=== PATIENT | male | born 1955 | race Caucasian/White ===

== ENCOUNTER 2016-08-07 17:15 | Inpatient (IN) | payer OTHER ==
[~2016-08-07] VITALS: Ht 188 cm; Wt 94.8 kg
--- NOTE | ~2016-08-07 | H ---
[facility] [place] [address] HISTORY AND PHYSICAL Name: SAIDAHEIDI DEO Room #: 431-P ADM IN M.R.#: [id number] Admission: 08/07/16 Attend Phys: Naresh Reed MD Discharge: Date of : 51 Report #: [id number] THIS REPORT FOR: //name// CC: Naresh Reed DATE OF SERVICE: 08/07/2016 CHIEF COMPLAINT: Cough and weakness. HISTORY OF PRESENT ILLNESS: The patient is a 61-year-old male who has had a very complicated last 6-8 months with numerous admissions over at ___ [facility]. His underlying problem is paraplegia and diabetes mellitus. He has developed several wounds of his sacrum and lower extremities. He has also developed recurrent UTIs. He has also developed recurrent bowel obstruction. He has been living in a hotel and not been able to get out of bed due to poor bed. In light of that, he has been having significant problems with ____ himself. He does have a nurse that visits periodically, but he has not been able to get out of the bed. He has not been showering. He has not been taking his medications regularly. PAST MEDICAL HISTORY: Significant for: 1. Diabetes mellitus. 2. Recent recurrent partial small-bowel obstruction. 3. Peripheral arterial disease with episodes of ketoacidosis. 4. Chronic constipation. 5. Diastolic heart failure. 6. Peripheral artery disease. 7. Coronary artery disease. 8. Diabetic foot ulcers. 9. Gluteal ulcer. 10. Recent UTI. MEDICATIONS: Are as follows, takes Valium 5 mg q. 8 p.r.n., Lasix 40 mg b.i.d., insulin Glargine and lispro daily, metoprolol b.i.d., Bactroban to the sores, MiraLax daily, Lyrica 75 mg b.i.d. SOCIAL HISTORY: Again, he has been living in a hotel, he has had a son who visits periodically, but patient reports does not get ____ much care. He is a prior smoker and prior drinker, does not drink actively, no recreational drugs. REVIEW OF SYSTEMS: CONSTITUTIONAL: He is not aware of any fevers or chills. HEENT: He denies headaches or visual changes. CHEST: He does have a cough or sputum production. No chest pain, no palpitations. GASTROINTESTINAL: He has no vomiting or diarrhea or black stools. He does [facility] [address] [place] [address] HISTORY AND PHYSICAL Name: HEIDI CINTRON Room #: 431-P [facility] IN .R.#: [id number] Admission: 08/07/16 Attend Phys: Naresh Reed MD Discharge: Date of : 51 Report #: [id number] notice cloudy dark urine and dysuria. EXTREMITIES: He has marked swelling and weakness in his legs with ulcer on his sacrum and also on his right foot. PHYSICAL EXAMINATION: VITAL SIGNS: In my office today, blood pressure is 90/52. Pulse ox was 88%, pulse was 89, respiratory rate is 28, temperature is 98.1. His weight is 135 pounds, last time I saw him 14 months ago, he weighed 240 pounds. HEENT: His mucous membranes are dry. NECK: Supple without increased central venous pressure. CHEST: Shows coarse in the right anterior and posteriorly. CARDIOVASCULAR: He has a regular rhythm with no S4. ABDOMEN: Soft, not distended. Bowel sounds are present. EXTREMITIES: There is marked evidence of peripheral vascular disease with atrophy ____ and severely poorly maintained hygiene in his feet with thickened nails, dry skin and flaking throughout. There is a stage 2 ulcer in the right lateral malleolus. The pulses are very faint, but are present. His toes have a white purple hue on both feet. I could not review his sacral unclear as he is in a wheelchair and he is too weak to get up to get to the bed and we will review that once he gets to the hospital. ASSESSMENT AND PLAN: 1. Pneumonia, right lower lobe, ____ Rocephin, Zithromax, breathing treatments and get a CBC, chemistry panel. 2. Sacral decubitus ulcer. We will consult the wound clinic, Dr. Nicholas and the wound care nurse. 3. Diabetes mellitus, we will start on a sliding scale insulin. 4. History of recurrent small-bowel obstruction. Check KUB, diabetic diet for now. 5. History of UTI, get urine culture, the Rocephin should cover. We will followup on the sensitivities. 6. Severe debility, get PT and OT, likely residential placement. 7. Chronic constipation, continue MiraLax. 8. History of COPD, breathing treatments 5. History of spinal cord injury with weakness, ____ complete paraplegia, PT and OT. By: [id number] Naresh Reed MD /nt
[2016-08-07 20:00] VITALS: BP 92/52
[2016-08-07 20:19] LABS: ABSOLUTE NEUTROPHILS 6.6 thou/uL (1.4-8.2); BASOPHILS 1.1 % (0.0-2.0); EOSINOPHILS 2.1 % (0.0-3.0); HEMATOCRIT 39.1 % (42.0-52.0); HEMOGLOBIN 13.1 gm/dL (14.0-18.0); LYMPHOCYTES 25.7 % (24.0-44.0); MCH 26.5 pg (26.0-34.0); MCHC 33.4 g/dL (28.0-37.0); MCV 79.3 fL (80.0-100.0); MONOCYTES 6.4 % (1.0-8.0); PLATELET COUNT 232 thou/uL (150-400); POLYS 64.7 % (36.0-66.0); RBC 4.93 mil/uL (4.50-6.00); RDW 15.4 % (10.5-14.5); WBC 10.2 thou/uL (4.0-11.0)
[2016-08-07 20:20] LABS: MANUAL DIFF NO
[2016-08-07 20:31] LABS: ALBUMIN 3.1 g/dL (3.4-5.0); CALCIUM 8.9 mg/dL (8.5-10.1); POTASSIUM 3.9 mmol/L (3.5-5.1); TOTAL BILIRUBIN 0.5 mg/dL (<0.1-1.0); TOTAL PROTEIN 7.6 g/dL (6.4-8.2)
[2016-08-08 02:25] LABS: URINE BILIRUBIN NEGATIVE (Negative); URINE BLOOD 2+ (Negative); URINE COLOR YELLOW; URINE GLUCOSE-RANDOM* NEGATIVE (Negative); URINE KETONES NEGATIVE (Negative); URINE LEUKOCYTES-REFLEX 2+ (Negative); URINE PROTEIN (DIPSTICK) TRACE (Negative); URINE SPECIFIC GRAVITY 1.015 (1.003-1.035); URINE UROBILINOGEN 0.2 E.U./dl (0.2-1.0)
[2016-08-08 02:37] LABS: CASTS None Seen /LPF (None Seen); SQUAMOUS None Seen /LPF (0-3); URINE WBC-REFLEX >25 Many /HPF (0-5)
[2016-08-08 02:38] LABS: AMORPHOUS URATES Moderate /LPF (None Seen); CRYSTALS None Seen /LPF (None Seen)
[2016-08-08 08:35] VITALS: BP 120/62
[2016-08-08 14:12] LABS: HEMATOCRIT 36.5 % (42.0-52.0); HEMOGLOBIN 12.1 gm/dL (14.0-18.0); MCH 26.6 pg (26.0-34.0); MCHC 33.2 g/dL (28.0-37.0); RBC 4.56 mil/uL (4.50-6.00); RDW 15.2 % (10.5-14.5); WBC 7.9 thou/uL (4.0-11.0)
[2016-08-08 15:13] VITALS: BP 99/48
[2016-08-08 15:18] VITALS: BP 116/61
[2016-08-08 19:28] VITALS: BP 107/37
[2016-08-09 04:04] VITALS: BP 122/63
[2016-08-09 04:36] LABS: ALBUMIN 2.6 g/dL (3.4-5.0); CALCIUM 8.5 mg/dL (8.5-10.1); CREATININE 0.8 mg/dL (0.7-1.3); POTASSIUM 4.1 mmol/L (3.5-5.1); TOTAL BILIRUBIN 0.3 mg/dL (<0.1-1.0); TOTAL PROTEIN 6.7 g/dL (6.4-8.2)
[2016-08-09 07:40] VITALS: BP 119/72
[2016-08-09 15:43] VITALS: BP 156/73
[2016-08-09 21:00] VITALS: BP 126/60
[2016-08-10 04:30] VITALS: BP 138/68
[2016-08-10 07:19] VITALS: BP 133/75
[2016-08-10 16:09] VITALS: BP 115/61
[2016-08-10 19:53] VITALS: BP 127/64
[2016-08-11 04:20] VITALS: BP 116/63
[2016-08-11 09:02] VITALS: BP 94/63
[2016-08-11 15:55] VITALS: BP 123/54
[2016-08-11 20:00] VITALS: BP 129/68
[2016-08-12 04:22] VITALS: BP 118/69
[2016-08-12 07:35] VITALS: BP 110/56
[2016-08-12 08:08] VITALS: BP 110/56
[2016-08-12 11:35] VITALS: BP 129/52
[2016-08-12 15:24] VITALS: BP 124/57
[2016-08-12 20:52] VITALS: BP 139/73
[2016-08-13 04:19] VITALS: BP 127/76
[2016-08-13 07:41] VITALS: BP 140/70
[2016-08-13] MEDS ORDERED: ALBUTEROL2.5 MG/0.5 INH (10:38)
[2016-08-13] MEDS ORDERED: ENOXAPARIN40 MG/0.1 SUBQ (10:38)
[2016-08-13] MEDS ORDERED: DOXYCYCLINE 10100 MG PO (10:38)
[2016-08-13] MEDS ORDERED: LANTUS100 UNIT/M SUBQ (10:38)
[2016-08-13] MEDS ORDERED: VALIUM5 MG PO (10:38)
[2016-08-13] MEDS ORDERED: LYRICA 75 MG CA75 MG PO (10:38)
[2016-08-13] MEDS ORDERED: OXYCODONE HCL 55 MG PO (10:38)
[2016-08-13] MEDS ORDERED: HUMALOG100 UNIT/1 SUBQ (10:38)
[2016-08-13] MEDS ORDERED: ACETAMINOPHEN325 M1 PO (10:38)
[2016-08-13] MEDS ORDERED: PERCOCET 10-321 EACH PO (10:38)
[2016-08-13] MEDS ORDERED: NYSTATIN 1100000 U/M SW&SWALLOW (10:38)
== END 2016-08-13 15:59 | DRG 689 ==
LOC: 4E 17:15
PROVIDERS: Family Medicine
DX: N39.0 Urinary tract infection, site not specified (principal); E43 Unspecified severe protein-calorie malnutrition; J18.9 Pneumonia, unspecified organism; J44.0 Chronic obstructive pulmonary disease with (acute) lower respiratory infection; N17.9 Acute kidney failure, unspecified; J06.9 Acute upper respiratory infection, unspecified; L89.309 Pressure ulcer of unspecified buttock, unspecified stage; L89.899 Pressure ulcer of other site, unspecified stage; N18.9 Chronic kidney disease, unspecified; E11.22 Type 2 diabetes mellitus with diabetic chronic kidney disease; E11.40 Type 2 diabetes mellitus with diabetic neuropathy, unspecified; E11.21 Type 2 diabetes mellitus with diabetic nephropathy; G83.9 Paralytic syndrome, unspecified; B37.9 Candidiasis, unspecified; E11.51 Type 2 diabetes mellitus with diabetic peripheral angiopathy without gangrene; K59.00 Constipation, unspecified; I50.9 Heart failure, unspecified; I25.10 Atherosclerotic heart disease of native coronary artery without angina pectoris; L89.159 Pressure ulcer of sacral region, unspecified stage; Z91.041 Radiographic dye allergy status; Z91.048 Other nonmedicinal substance allergy status; Z79.4 Long term (current) use of insulin; Z68.26 Body mass index [BMI] 26.0-26.9, adult; Z87.440 Personal history of urinary (tract) infections
CPT/HCPCS: 10783

== ENCOUNTER 2016-10-01 19:15 | Inpatient (IN) | payer OTHER ==
[~2016-10-01] VITALS: Ht 185.4 cm; Wt 110.2 kg
--- NOTE | ~2016-10-01 | H ---
[facility] [place] [address] HISTORY AND PHYSICAL Name: SAIDAHEIDI DEO Room #: 428-P [facility] Brenda Borges#: [id number] Admission: 10/01/16 Attend Phys: Naresh Reed MD Discharge: Date of : 51 Report #: [id number] THIS REPORT FOR: //name// CC: Naresh Reed DATE OF SERVICE: 10/02/2016 CHIEF COMPLAINT: Weakness. HISTORY OF PRESENT ILLNESS: The patient is a 61-year-old male with multiple chronic problems including a complete paraplegia and chronic back pain. He has been in numerous hospitals over the past several years. He has recently been in a skilled facility at [facility]. He reports that they have been not taking care of him and even causing him increasing pain and he demanded to be sent out. The patient was seen in the ER and evaluated for this pain. He has a wound on his foot. He has diabetes. He denies any fevers or chills. PAST MEDICAL HISTORY: His past history is significant for: 1. Prior back injury with partial paraplegia and inability to walk for many years. 2. Prior bowel obstruction. 3. Diabetes mellitus type 2. 4. Several wounds on his legs and back. 5. COPD. 6. Chronic pain syndrome. 7. Anxiety. MEDICATIONS: Include Percocet p.r.n., oxycodone p.r.n., Tylenol p.r.n., Lyrica 75 mg t.i.d., Valium 5 mg t.i.d., Lantus b.i.d. and Humalog sliding scale. SOCIAL HISTORY: He is a nonsmoker currently. He smoked in the past. No alcohol. No recreational drugs at this time. ALLERGIES: IODINE. REVIEW OF SYSTEMS: CONSTITUTIONAL: No fever or chills. HEENT: No headaches or visual changes, other than his chronic pain. CHEST: No chest pains. He complains of some cough from the back of his throat. It has been there chronically for over a year. No sputum production. CARDIOVASCULAR: No chest pain or palpitations. GASTROINTESTINAL: No nausea, vomiting, diarrhea or constipation. GENITOURINARY: No burning. No frequency. EXTREMITIES: He has the wound and the leg pain and back pain. NEUROLOGIC: He has the weakness and paresthesias. [address] [address] HISTORY AND PHYSICAL Name: HEIDI CINTRON Room #: 428-P [facility] Brenda Borges#: [id number] Admission: 10/01/16 Attend Phys: Naresh Reed MD Discharge: Date of : 51 Report #: [id number] PHYSICAL EXAMINATION: VITAL SIGNS: Blood pressure 130/68, pulse is 80 and respiratory rate is 14. He is afebrile. GENERAL: The patient is awake and alert. He is in no acute distress. He is freely conversive. HEENT: His mucous membranes are moist. NECK: Supple, without adenopathy, thyromegaly or bruits. CHEST: Clear to auscultation anteriorly. CARDIOVASCULAR: Regular rate and rhythm, without murmur. ABDOMEN: Soft, nondistended, nontender. No masses. Bowel sounds are active. EXTREMITIES: There is edema bilaterally. Pulses are present. He has wounds on the right ankle. They does not appear red or infected. His pulses appear intact. LABORATORY DATA: Sodium 139, potassium 4.7, chloride 102, bicarbonate 33, BUN 26, creatinine 0.9, glucose 315 and calcium 9.5. WBC 6.4, hemoglobin 13.6, hematocrit 40.4, platelet count 180,000, segs 52 and lymphs 37. Venous Dopplers, no evidence of DVT. ASSESSMENT AND PLAN: Chronic pain. Unfortunately, the patient's facility at [facility] was not going to take him back due to his disruptive behavior and accusations of inadequate care. They requested that he not return. However, we are going to observe the patient and try to find out an alternate facility for him, maintain his regular meds. I do not see anything that would require full admission to the hospital or any new medical intervention at this time. By: [id number] Naresh Reed MD /nt
--- NOTE | ~2016-10-01 | HC ---
[facility] [place] [address] CONSULTATION Name: HEIDI CINTRON Room #: 428-[facility]#: [id number] Admission: 10/01/16 Attend Phys: Naresh Reed MD Discharge: Date of : 51 Report #: [id number] THIS REPORT FOR: //name// CC: Naresh Reed DATE OF SERVICE: 10/03/2016 PERSONAL PHYSICIAN: Naresh Reed MD CHIEF COMPLAINT: Multiple wounds. HISTORY OF PRESENT ILLNESS: This is a 61-year-old white male who has recently been in a rehab facility at [facility] for the past several weeks. The patient states that he was admitted for generalized weakness, but is concerned because he does not feel he is getting adequate care to the wounds that he has and I have been asked to assist in the care of the wounds at this time. The patient admits that he does have diabetes. The patient states he tries to eat a high protein diet but is not very successful at that. The patient denies any other associated complaints except for the chronic back pain. PAST MEDICAL HISTORY: Significant for partial paraplegia, inability to walk for several years secondary to injury, history of type 2 diabetes, recurrent pressure ulcers, COPD, chronic pain syndrome, and anxiety. CURRENT MEDICATIONS: Multiple, I reviewed the patient's medication list. DRUG ALLERGIES: IODINE. SOCIAL HISTORY: The patient resides in a care facility at this time. Does not smoke now, but is a former smoker. No alcohol. REVIEW OF SYSTEMS: CONSTITUTIONAL: The patient denies fevers or chills. NEUROLOGIC: The patient complains of generalized weakness, but no isolated weakness in arms or legs except the patient is partially paralyzed in his lower extremities. EYES: No complaints. ENT: No complaints. CARDIAC: The patient denies chest pain, palpitations or peripheral edema. RESPIRATORY: The patient denies shortness breath, cough or wheezes. GASTROINTESTINAL: The patient denies nausea, vomiting, abdominal pain. GENITOURINARY: The patient denies urgency or frequency. MUSCULOSKELETAL: The patient has chronic back pain. SKIN: There is pressure ulcer in his sacral region as well as deep tissue injury in his left buttock. Deep tissue injury is on foot and heel. Has an unstageable ulcer [place] [address] CONSULTATION Name: HEIDI CINTRON Room #: 428-P [facility] MYogi#: [id number] Admission: 10/01/16 Attend Phys: Naresh Reed MD Discharge: Date of : 51 Report #: [id number] PHYSICAL EXAMINATION: VITAL SIGNS: Temperature 36.7. Rest of vital signs are stable. GENERAL: This is alert and oriented x 3, pleasant white male who is in no acute distress. HEENT: Normocephalic, atraumatic. Mucous membranes are somewhat dry. Pupils are round. Sclerae are white. NECK: Supple, without masses. BACK: Tender in lumbar region to percussion. There is no ulceration of wounds noted on the back. LUNGS: Clear. HEART: Regular, without murmur. ABDOMEN: Obese, soft, otherwise nontender. EXTREMITIES: The patient has minimal movement in his lower extremities. Distal pulses appeared to be intact. Evaluation of right lateral ankle reveals a small unstageable ulcer, please see nurses notes for actual measurements. There is 200% slough covered without signs of infection. Periulcer is intact. There is no tunneling, tracking or undermining. Evaluation of left foot reveals a mid foot deep tissue injury, which is ecchymotic, but not open. No signs of cellulitis. Evaluation of left heel reveals a deep tissue injury which also is ecchymotic without signs of open ulcerations or cellulitis. Evaluation of sacrococcygeal region reveals stage III ulcerations x 2, which are a mix of 50% granulation tissue, 50% slough. There are no signs of any necrotic tissue. Periulcer is mildly macerated but there is no significant tunneling, tracking or undermining. There are no signs of increased erythema or warmth. On the left superior gluteal region is a deep tissue injury, which is ecchymotic but not open. NEUROLOGIC: Cranial nerves II-XII are grossly intact. Motor and sensory are grossly intact. LABORATORY VALUES: White count 6.4, hemoglobin 13.6, BUN 26, creatinine 0.9, glucose 315. Albumin low at 2.6. Lower extremity arterial Dopplers showed no flow limiting stenosis in either lower extremity. IMPRESSION: 1. Stage III sacral ulcer x 2 present on admission. 2. Deep tissue injury on his left buttock, present on admission. 3. Left medial foot deep tissue injury, present on admission. 4. Left heel deep tissue injury, present on admission. 5. Right lateral ankle unstageable ulcer present on admission. 6. Type 2 diabetes. 7. Protein-calorie malnutrition -- moderate with albumin of 2.6. 8. Partial paraplegia secondary to injury. 9. Generalized debility. 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 We will order low air loss mattress for the patient to be turned every 2 hours. left heel, left medial foot with Betadine daily left to open air. We will apply zinc cream to the sacral ulcers and cover with sacral foam border. This will be changed Thursday, Thursday and Thursday and p.r.n. soilage. We will place an Optifoam to the right lateral ankle ulcer and change this Thursday, Thursday and Thursday p.r.n. The patient will be placed in PRAFO boots while in bed at all times. I will start the patient to try to maximize his oral supplementation of protein for healing. Also, consider physical and occupational therapy consult for strengthening. We will continue all of the current medications. I appreciate the ability to consult. By: [id number] Ned Nicholas MD /darien
[~2016-10-01 19:15] MED LIST: ACETAMINOPHEN325 M1 PO; ALBUTEROL2.5 MG/0.5 INH; DOXYCYCLINE 10100 MG PO; ENOXAPARIN40 MG/0.1 SUBQ; HUMALOG100 UNIT/1 SUBQ; LANTUS100 UNIT/M SUBQ; LYRICA 75 MG CA75 MG PO; NYSTATIN 1100000 U/M SW&SWALLOW; OXYCODONE HCL 55 MG PO; PERCOCET 10-321 EACH PO; VALIUM5 MG PO
[2016-10-01 20:01] LABS: ABSOLUTE NEUTROPHILS 3.3 thou/uL (1.4-8.2); BASOPHILS 0.9 % (0.0-2.0); EOSINOPHILS 3.9 % (0.0-3.0); HEMATOCRIT 40.4 % (42.0-52.0); HEMOGLOBIN 13.6 gm/dL (14.0-18.0); LYMPHOCYTES 35.7 % (24.0-44.0); MCH 27.4 pg (26.0-34.0); MCHC 33.5 g/dL (28.0-37.0); MCV 81.8 fL (80.0-100.0); MONOCYTES 7.6 % (1.0-8.0); PLATELET COUNT 180 thou/uL (150-400); POLYS 51.9 % (36.0-66.0); RBC 4.95 mil/uL (4.50-6.00); RDW 15.2 % (10.5-14.5); WBC 6.4 thou/uL (4.0-11.0)
[2016-10-01 20:02] LABS: MANUAL DIFF NO
[2016-10-01 20:05] LABS: CALCIUM 9.5 mg/dL (8.5-10.1); CREATININE 0.9 mg/dL (0.7-1.3); POTASSIUM 4.7 mmol/L (3.5-5.1)
[2016-10-01 22:30] VITALS: BP 124/65
[2016-10-01 23:25] VITALS: BP 123/75
[2016-10-02 07:53] VITALS: BP 131/65
[2016-10-02 17:29] VITALS: BP 118/65
[2016-10-02 20:00] VITALS: BP 151/73
[2016-10-03 04:14] VITALS: BP 118/58
[2016-10-03 04:15] VITALS: BP 118/56
[2016-10-03 11:14] VITALS: BP 162/67
[2016-10-03 17:42] VITALS: BP 146/64
[2016-10-03 20:00] VITALS: BP 140/60
[2016-10-04 04:00] VITALS: BP 123/63
[2016-10-04 07:15] VITALS: BP 125/70
[2016-10-04 16:05] VITALS: BP 146/53
[2016-10-04 20:00] VITALS: BP 141/63
[2016-10-05 04:30] VITALS: BP 109/52
[2016-10-05 09:08] VITALS: BP 111/56
[2016-10-05 15:27] VITALS: BP 122/65
[2016-10-05 20:10] VITALS: BP 140/73
[2016-10-06 04:38] VITALS: BP 117/64
[2016-10-06 07:41] VITALS: BP 123/66
[2016-10-06 22:00] VITALS: BP 118/62
[2016-10-07 08:29] VITALS: BP 137/74
[2016-10-07 15:48] VITALS: BP 153/78
[2016-10-07 20:00] VITALS: BP 146/74
[2016-10-08 04:34] VITALS: BP 115/62
[2016-10-08 08:37] VITALS: BP 116/66
[2016-10-08 15:22] VITALS: BP 127/70
[2016-10-08 19:54] VITALS: BP 132/63
[2016-10-09 04:00] VITALS: BP 126/76
[2016-10-09 08:04] VITALS: BP 111/64
[2016-10-09 15:56] VITALS: BP 111/64
[2016-10-09 15:58] VITALS: BP 111/64
== END 2016-10-09 17:55 | disposition home health service (06) | DRG 592 ==
LOC: ER 19:15 → EROBS 21:46 → 4E 22:53
PROVIDERS: Nurse Practitioner
DX: L89.153 Pressure ulcer of sacral region, stage 3 (principal); G82.20 Paraplegia, unspecified; E44.0 Moderate protein-calorie malnutrition; K56.60 Unspecified intestinal obstruction; E11.40 Type 2 diabetes mellitus with diabetic neuropathy, unspecified; J44.9 Chronic obstructive pulmonary disease, unspecified; E11.622 Type 2 diabetes mellitus with other skin ulcer; S90.02XA Contusion of left ankle, initial encounter; S90.32XA Contusion of left foot, initial encounter; E11.65 Type 2 diabetes mellitus with hyperglycemia; M54.9 Dorsalgia, unspecified; Z87.891 Personal history of nicotine dependence; S30.0XXA Contusion of lower back and pelvis, initial encounter; G89.4 Chronic pain syndrome; F41.9 Anxiety disorder, unspecified; E66.9 Obesity, unspecified; L89.510 Pressure ulcer of right ankle, unstageable; S60.012A Contusion of left thumb without damage to nail, initial encounter; X58.XXXA Exposure to other specified factors, initial encounter; Y93.89 Activity, other specified; Z88.8 Allergy status to other drugs, medicaments and biological substances; Y92.89 Other specified places as the place of occurrence of the external cause; Y99.8 Other external cause status; Z68.32 Body mass index [BMI] 32.0-32.9, adult; Z90.49 Acquired absence of other specified parts of digestive tract